=== PATIENT | male | born 1970 | race Caucasian/White ===

== ENCOUNTER 2016-05-22 22:22 | Emergency (ER) | payer OTHER ==
--- NOTE | ~2016-05-22 | CT2 ---
[facility] A Service of [facility] & [facility] RADIOLOGY TEXT RESULTS PATIENT: LAMAR CHACON LOCATION: [facility] : 72 UNIT #: [id number] AGE: [address]: Samira Rodriguez MD SEX: M ORDER DR: [id number] [facility] [address] [place], [place] [address] [id number] MR#: [id number] Acc #: [id number] NAME: LAMAR CHACON : 1970 SEX: M STUDY DATE/TIME: 05/22/2016 23:40 UNIT: [facility] ROOM: STUDY DESCRIPTION: CT Abd and Pelv W Cont Attending Physician: Samira Rodriguez M.D. Ordering Physician: Samira Rodriguez M.D. Primary Care Physician: No Primary Care Physician MEDICAL IMAGING REPORT This report is preliminary unless electronic signature is present EXAM CT abdomen and pelvis, 05/22, at 2343 hours. INDICATIONS Abdominal pain that started about 10 days ago with vomiting and diarrhea. Generalized pain. No trauma. TECHNIQUE Axial images were obtained through the abdomen and pelvis following IV contrast administration. Multiplanar reformats were obtained. This CT exam was performed with one or more of the following radiation dose reduction techniques: automatic exposure control, adjustment of mA and/or kV according to patient size, and iterative reconstruction. COMPARISON No comparison. FINDINGS ABDOMEN: Lung bases are clear. Gallbladder is normal and there is no biliary obstruction. Numerous calcifications are noted in the proximal pancreas compatible with chronic calcific pancreatitis. There is dilatation and beading of the pancreatic duct, also consistent with that diagnosis. The proximal pancreatic duct measures up to 9 mm in diameter. Additionally, there is fairly pronounced fat stranding around the head and uncinate process of the pancreas, which extends around the second portion of the duodenum and out into the right lower quadrant and right pericolic gutter. This may reflect acute pancreatitis with secondary inflammation of the duodenum or could reflect acute duodenitis from peptic ulcer disease. Correlation with laboratory data and physical exam findings recommended. There is a fluid collection along the anterior aspect of the pancreatic head measuring about 2.8 x 1.6 cm. This is presumably a pseudocyst. Attention on followup is recommended. There may be some STS. [facility] A Service of [facility] & [facility] RADIOLOGY TEXT RESULTS PATIENT: LAMAR CHACON LOCATION: [facility] : 72 UNIT #: [id number] AGE: [address]: Samira Rodriguez MD SEX: M ORDER DR: secondary inflammation of the hepatic flexure of the colon as well. The rest of the GI tract is grossly normal. The solid organs are otherwise normal. PELVIS: Urinary bladder is distended, but otherwise normal. The appendix is normal. The remainder of the unopacified GI tract is normal as well. There is a small amount of dependent free fluid in the pelvis. IMPRESSION 1. Patient has chronic calcific pancreatitis. 2. There is fat stranding around the head and uncinate process of the pancreas as well as around the duodenum and extending out into the right pericolic gutter and right lower quadrant. This presumably reflects acute pancreatitis with secondary inflammation of the duodenum and probably the hepatic flexure of the colon as well. Correlation with laboratory data and patient presentation is recommended to exclude a primary duodenitis as a cause for inflammatory change. 3. Fluid collection along the head of the pancreas is likely a small pseudocyst. Attention on followup is recommended. 4. The appendix is normal. 5. Distended, but otherwise normal-appearing, urinary bladder. Dictated by... Rayray Wilder Jr., M.D. THIS IS AN ELECTRONICALLY VERIFIED REPORT Rayray Wilder Jr., M.D. at 05/23/2016 12:39 PM SOLEDAD/jr TD: 05/23/2016 09:24 JOB #: [id number] MEDICAL IMAGING REPORT COPY
[2016-05-22 21:58] LABS: URINE SOURCE CLEAN CATCH
[2016-05-22 22:04] LABS: BASOPHIL# 0.1 X10e3 (0-0.3); BASOPHIL% 0.9 % (0-2.5); EOSINOPHIL# 0.3 X10e3 (0-0.7); EOSINOPHIL% 3.1 % (0.0-7.0); HEMATOCRIT 41.5 % (38.0-50.0); HEMOGLOBIN 14.2 gm/dL (13.0-16.0); LYMPHOCYTE# 1.7 X10e3 (1.0-3.5); LYMPHOCYTE% 20.4 % (17.0-45.0); MEAN CORPUSCULAR HEMOGLOBIN 33.5 PG (28-34); MEAN CORPUSCULAR HGB CONC 34.2 g/dL (30-36); MEAN PLATELET VOLUME 6.5 FL (6.5-11.5); MONOCYTE# 0.6 X10e3 (0-1.0); MONOCYTE% 6.9 % (3.0-12.0); NEUTROPHIL# 5.7 X10e3 (1.5-7.1); NEUTROPHIL% 68.7 % (40-75); PLATELET COUNT 513 X10e3 (140-420); RED BLOOD COUNT 4.23 X10e (3.90-5.60); RED CELL DISTRIBUTION WIDTH 14.7 % (11.0-15.5); WHITE BLOOD COUNT 8.2 X10e3 (4.0-10.5)
[2016-05-22 22:06] LABS: DIFF IND NO; URINE APPEARANCE CLEAR; URINE BILIRUBIN NEG (NEG); URINE BLOOD NEG (NEG); URINE COLOR YELLOW; URINE GLUCOSE NEG (NEG); URINE KETONE NEG (NEG); URINE LEUKOCYTE ESTERASE NEG (NEG); URINE NITRATE NEG (NEG); URINE PROTEIN NEG (NEG); URINE SPECIFIC GRAVITY 1.005 (1.003-1.035); URINE UROBILINOGEN 0.2 MG/DL (NEG)
[2016-05-22 22:10] LABS: CULTURE INDICATED? NO
[2016-05-22 22:18] LABS: AMPHETAMINE NEG (NEG); BARBITURATES NEG (NEG); BENZODIAZEPINES NEG (NEG); COCAINE NEG (NEG); MARIJUANA NEG (NEG); OPIATES NEG (NEG); TRICYCLIC ANTIDEPRESSANTS NEG (NEG); U METHADONE NEG (NEG)
[~2016-05-22 22:22] MED LIST: HYDROCODON-ACE1 EAC5 PO
[2016-05-22 22:41] LABS: ALBUMIN SERUM 3.2 g/dL (3.5-5.0); ALCOHOL BLOOD 60 mg/dL (0); ALKALINE PHOSPHATASE 92 U/L (32-92); ALT (SGPT) 18 U/L (10-40); AMYLASE 219 U/L (0-46); AST (SGOT) 16 U/L (10-42); BILIRUBIN, DIRECT 0.1 mg/dL (0.0-0.2); BILIRUBIN,INDIRECT 0.3 mg/dL (0.0-0.9); BILIRUBIN,TOTAL 0.4 mg/dL (0.2-2.0); CALCIUM SERUM 8.5 mg/dL (8.4-10.2); CARBON DIOXIDE 23 mmol/L (22-31); CHLORIDE 99 mmol/L (100-111); CREATININE SERUM 0.3 mg/dL (0.6-1.4); GLOM FILT RATE Estimated ABOVE60 mL/min (>60); GLUCOSE FASTING 105 mg/dL (70-110); LIPASE 348 U/L (22-51); POTASSIUM 3.4 mmol/L (3.5-5.1); PROTEIN TOTAL SERUM 6.8 g/dL (6.0-8.3); SODIUM 135 mmol/L (135-145)
[2016-05-22 22:42] LABS: BLOOD UREA NITROGEN <5 mg/dL (9-23); BUN/CREATININE RATIO 16.66
== END 2016-05-23 01:26 | disposition left against medical advice (07) ==
LOC: CED 22:22
PROVIDERS: Emergency Medicine
DX: K85.20 Alcohol induced acute pancreatitis without necrosis or infection (principal); K21.9 Gastro-esophageal reflux disease without esophagitis; I10 Essential (primary) hypertension; F17.210 Nicotine dependence, cigarettes, uncomplicated; Z88.5 Allergy status to narcotic agent; Z91.030 Bee allergy status
CPT/HCPCS: 36415; 74177; 80048; 80076; 80307; 81003; 82150; 83690; 85025; 96361; 96374; 96375; 99284; G0480; J2270; J2405; Q9967

== ENCOUNTER 2016-05-25 07:27 | Inpatient (IN) | payer OTHER ==
--- NOTE | ~2016-05-25 | DS ---
Unit #: [id number] #: [id number] Patient: LAMAR CHACON [id number] [address] [place], [place] [address] [id number] I MR#: [id number] NAME: LAMAR CHACON ROOM: 328 Age: 45 Sex: M Admission Date: 05/25/2016 : 1970 Discharge Date: 05/29/2016 Attending Physician: Stefano Ty M.D. DISCHARGE SUMMARY DISCHARGE DIAGNOSES 1. Acute pancreatitis secondary to alcohol. 2. Alcohol abuse. 3. Duodenitis. 4. Dysphagia. HOSPITAL COURSE The patient is a 45-year-old male with a history of alcohol abuse, drinks 6 to 8 beers per day and history of pancreatitis, admitted to the hospital with abdominal pain. The patient was admitted to the med/surg floor. The patient was started on bowel rest and IV fluids and CIWA protocol for alcohol withdrawal. The patient had a CT of the abdomen that showed acute pancreatitis. The patient had a lipase of 405 and amylase of 227 at the time of admission. The patient showed improvement with IV fluids. However, the patient continues to complain of persistent dysphagia. The patient had upper endoscopy by GI, Dr. Dennis and that showed mild esophagitis, hiatal hernia, and significant inflammation in the second and third part of duodenal bulb. The biopsies were taken. Discussed with pathologist, Dr. Schafer and the patient had a benign inflammation in the duodenum and there is no evidence of malignancy. The patient is discharged home on Protonix and pain medication in a stable condition and recommended to follow up with GI in one week and primary care physician in 1 to 2 weeks. DISCHARGE MEDICATIONS The patient is discharged home on Tylenol, Claritin, Protonix 40 mg daily, and [place] for pain medications. DISCHARGE INSTRUCTIONS The patient is recommended to abstain from alcohol and stop his smoking and follow up with the primary care physician. PHYSICAL EXAMINATION GENERAL: The patient is lying on the bed. Alert, awake, oriented, not in acute distress. VITAL SIGNS: Temperature 98.3, pulse 92, respirations 18, blood pressure 134/95. LUNGS: Clear to auscultation bilaterally. No rhonchi. No wheezing. HEART: Regular rate and rhythm. ABDOMEN: Soft. Positive bowel sounds. Complains of tenderness at the site of the right lower quadrant where the biopsy was taken. Extremities: No cyanosis. No edema. NEUROLOGIC: Alert, awake, oriented. No gross focal motor deficits. Unit #: [id number] #: [id number] Patient: LAMAR CHACON DIAGNOSTIC STUDIES LABORATORY RESULTS: Glucose 109, BUN less than 5, creatinine 0.5. Sodium 139, potassium 3.9, chloride 100, bicarb 30, calcium 8.9, albumin 2.5, AST 31, ALT 59, alkaline phosphatase 68, amylase 49, lipase 66. WBC 6.1, hemoglobin 12.1, hematocrit 36.4, platelets 554. The patient is discharged in a stable condition and recommended to follow up with GI and PCP in 1 to 2 weeks. Dictated by... Celestino Weaver TD: 05/30/2016 07:50 JOB #: [id number] DISCHARGE SUMMARY X X DISCHARGE SUMMARY
--- NOTE | ~2016-05-25 | OR ---
Unit #: [id number] #: [id number] Patient: LAMAR CHACON [id number] [address] [place], [place] [address] [id number] Rolando MR#: [id number] NAME: LAMAR CHACON ROOM: 328 Date of Procedure: 05/28/2016 Admission Date: 05/25/2016 Surgeon: eKi Dennis M.D. : 1970 Attending Physician: Stefano Ty M.D. Primary Care Physician: Primary Care Physician No OPERATIVE REPORT JOB NOTE: CC: PRIMARY CARE PHYSICIAN PROCEDURE PERFORMED Esophagogastroduodenoscopy with biopsies with regular as well as side-viewing endoscopic retrograde cholangiopancreatography scope. INDICATIONS FOR PROCEDURE The patient presented with an acute pancreatitis, also with dysphagia. CT scan shows thickening of the duodenal wall, undergoing evaluation with upper endoscopy. MEDICATIONS Monitored anesthesia. POSTOPERATIVE FINDINGS 1. Mild esophagitis diffusely for possible Zoë, biopsies taken. 2. Hiatal hernia, nonobstructing esophageal ring. 3. Normal stomach. 4. Significant inflammation in the second and third part of the duodenal bulb. There was a swelling around the ampulla, which could be possibly adenomatous versus inflammatory, biopsies taken carefully away from the opening with an ERCP scope. PLAN Follow up on the pathology report. If the biopsies are negative, repeat EGD with side-viewing scope to look at this area after 6 to 8 weeks. DESCRIPTION OF PROCEDURE The patient was explained of the procedure, risks, and benefits along with risks and benefits of anesthesia. He was brought to the endoscopy room. Propofol anesthesia was given. Bite block was placed. The scope was passed down the mouth into the esophagus, stomach, duodenum, and distal duodenum. Findings as described. I repeated the scope with a side-viewing scope to look at the ampullary and periampullary area, which was biopsied with a side-viewing ERCP scope. Scope was gently pulled out. He tolerated it well. No major complications were seen. Dictated by... Celestino Mendes/bingl Unit #: [id number] #: [id number] Patient: LAMAR CHACON TD: 05/28/2016 23:39 JOB #: [id number] OPERATIVE REPORT X Kei Dennis MD PROCEDURE OPERATIVE NOTE
--- NOTE | ~2016-05-25 | CT5 ---
[facility] A Service of [facility] & [facility] RADIOLOGY TEXT RESULTS PATIENT: LAMAR CHACON LOCATION: C3A 328-01 : [birth year] UNIT #: [id number] AGE: [address]: LEXI TY MD SEX: M ORDER DR: [id number] [place] [address] [facility]. [place], [place] [address] [id number] MR#: [id number] Acc #: [id number] NAME: LAMAR CHACON : 1970 SEX: M STUDY DATE/TIME: 05/25/2016 8:20 UNIT: [facility] ROOM: 88415 STUDY DESCRIPTION: CT Abdomen W Cont Attending Physician: Lexi Ty M.D. Ordering Physician: Skip Daley M.D. Primary Care Physician: Primary Care Physician No MEDICAL IMAGING REPORT This report is preliminary unless electronic signature is present EXAM CT of the abdomen and pelvis with contrast INDICATIONS 45-year-old male with history of abdominal pain for 12 days and pancreatitis. TECHNIQUE CT of the abdomen and pelvis was performed following the administration of IV contrast. Coronal and sagittal reformatted images obtained. This CT exam was performed with one or more of the following radiation dose reduction techniques: Automatic exposure control, adjustment of mA and/or kV according to patient size, and iterative reconstruction. Compared with CT of the abdomen and pelvis from 05/22/2016. FINDINGS The lung bases are clear. Stable fatty infiltration of the liver. Gallbladder unremarkable. Spleen unremarkable. Kidneys unremarkable. Adrenal glands unremarkable. Stable abnormal appearance of the pancreas. Stable large calcifications and edema within the head and uncinate process of the pancreas. Stable fluid collection in the head of the pancreas likely a pseudocyst. Stable dilated pancreatic duct. Stable adjacent thickening of the duodenum. Stable stranding about the pancreas. Stable fluid and thickening in the fascial planes extending inferiorly and also in the right paracolic gutter. The bone windows are unremarkable. IMPRESSION No significant change in the appearance of the pancreas, with findings consistent with the patient's history of acute pancreatitis. Stable stranding about the pancreas and edema involving the pancreatic head and uncinate process, with associated calcifications and small fluid STS. [facility] A Service of [facility] & [facility] RADIOLOGY TEXT RESULTS PATIENT: LAMAR CHACON LOCATION: A 328-01 : [birth year] UNIT #: [id number] AGE: [address]: LEXI TY MD SEX: M ORDER DR: collection likely a pseudocyst. Dictated by... Abraham Maier M.D. THIS IS AN ELECTRONICALLY VERIFIED REPORT Abraham Maier M.D. at 05/26/2016 7:41 AM KARTHIK/leanne TD: 05/25/2016 16:00 JOB #: [id number] MEDICAL IMAGING REPORT COPY
--- NOTE | ~2016-05-25 | EKG ---
PATIENT: LAMAR CHACON UNIT #: [id number] Ventricular Rate: 122 BPM Atrial Rate: 122 BPM P-R Interval: 118 ms QRS Duration: 84 ms Q-T Interval: 326 ms QTC Calculation(Bezet): 464 ms P [place]: 65 degrees Calculated R [place]: 78 degrees Calculated T [place]: 80 degrees Diagnosis Line: Sinus tachycardia Diagnosis Line: Low voltage QRS Diagnosis Line: Borderline ECG Diagnosis Line: No previous ECGs available Diagnosis Line: Confirmed by MARINA BLANCAS MD ([id number]) on Diagnosis Line: 05/26/2016 12:05:46 AM INTERPRETING MD: MAGALIS CARTER
--- NOTE | ~2016-05-25 | HP ---
Unit #: [id number] #: [id number] Patient: LAMAR CHACON [id number] [address] [place], [place] [address] [id number] I MR#: [id number] NAME: LAMAR CHACON ROOM: 328 Age: 45 Sex: M Admission Date: 05/25/2016 : 1970 Attending Physician: Stefano Ty M.D. Primary Care Physician: No Primary Care Physician HISTORY AND PHYSICAL CHIEF COMPLAINT Abdominal pain. HISTORY OF PRESENT ILLNESS The patient is a 45-year-old male with a history of alcohol abuse, drinks six to eight beers per day, and history of a pancreatitis, presented to the emergency room with an abdominal pain. It started yesterday at around 8:00 p.m. The patient stated the pain has been constant, is sharp and radiating to the back. The patient denies any nausea or vomiting. The patient also complains of the difficulty with the swallowing with history of acid reflux. The patient had a CT of the abdomen and pelvis that showed findings consistent with an acute pancreatitis. The patient had the labs done that showed a lipase of 405 and amylase of 227. The patient also complains of the subjective fevers and the fine tremors at the rest. The patient denies any nausea or vomiting or any trauma. PAST MEDICAL HISTORY History of a hypertension, acid reflux. PAST SURGICAL HISTORY History of exploratory laparotomy. HOME MEDICATIONS He takes Flexeril. ALLERGIES Tramadol and the bee pollen. SOCIAL HISTORY Smokes six to eight cigars per day and drinks six to eight beers per day pending on the day and denies any illicit drug abuse. FAMILY HISTORY Reviewed and none. REVIEW OF SYMPTOMS Fourteen-point review of symptoms performed and only pertinent positive findings as described above, remaining are negative. PHYSICAL EXAMINATION GENERAL APPEARANCE: On examination the patient was lying on a bed not in acute distress. VITAL SIGNS: Temperature 97.8, pulse 120, respiratory rate 20, blood pressure 142/97, sating 98% at room air. Unit #: [id number] #: [id number] Patient: LAMAR CHACON HEENT: Head atraumatic, normocephalic. Pupils equal, round and reacting to light and accommodation. Extraocular movements are intact. Dry mucous membranes. NECK: Supple. No JVD. LUNGS: Clear to auscultation bilaterally. No rhonchi. No wheezing. HEART: Regular rate and rhythm. ABDOMEN: Soft, positive bowel sounds and epigastric tenderness. EXTREMITIES: No cyanosis. No clubbing. NEUROLOGIC: Alert, awake, oriented. Positive for the resting tremors. DIAGNOSTIC STUDIES LABORATORY DATA: Glucose 165, BUN 7, creatinine 0.6, sodium 134, potassium 4.0, chloride 99, bicarb 23, calcium 8.6, magnesium 1.7, total protein 6.7, albumin 3, total bilirubin 1.2, AST 90, ALT 58, alkaline phosphatase 83, amylase 227, lipase 405, TSH 3.09, alcohol less than 5, troponin less than 0.05, WBC 13.3, hemoglobin 13.8, hematocrit 41.6, platelets 478, neutrophils 83.2. Urine tox is positive for TCA and UA is negative. IMAGING: The CT of the abdomen and pelvis shows no significant change in the appearance of the pancreas, with finding consistent with the patient's history of acute pancreatitis. There is stable stranding about the pancreas and edema involving the pancreatic head and uncinate process, with associated calcification and small fluid collection, likely a pseudocyst. ASSESSMENT 1. Acute pancreatitis. 2. Alcohol abuse. PLAN 1. Plan to admit the patient to inpatient with the telemetry. 2. Continue with the pain control with the morphine. 3. IV fluids D5 half NS at 125 mL per hour. 4. CIWA protocol. 5. Replace the electrolytes, magnesium per protocol. 6. Protonix 40 mg IV daily. 7. Further recommendations will follow as more lab results are available. Dictated by Celestino Weaver TD: 05/25/2016 21:22 JOB #: [id number] Unit #: [id number] #: [id number] Patient: LAMAR CHACON HISTORY AND PHYSICAL X X HISTORY AND PHYSICAL
[2016-05-25 08:18] LABS: BASOPHIL# 0.1 X10e3 (0-0.3); BASOPHIL% 0.6 % (0-2.5); EOSINOPHIL% 0.3 % (0.0-7.0); HEMATOCRIT 41.6 % (38.0-50.0); HEMOGLOBIN 13.8 gm/dL (13.0-16.0); LYMPHOCYTE% 7.4 % (17.0-45.0); MEAN CELL VOLUME 97.3 FL (83-96); MEAN CORPUSCULAR HEMOGLOBIN 32.2 PG (28-34); MEAN CORPUSCULAR HGB CONC 33.1 g/dL (30-36); MONOCYTE# 1.1 X10e3 (0-1.0); MONOCYTE% 8.5 % (3.0-12.0); NEUTROPHIL% 83.2 % (40-75); PLATELET COUNT 478 X10e3 (140-420); RED BLOOD COUNT 4.28 X10e (3.90-5.60); RED CELL DISTRIBUTION WIDTH 14.9 % (11.0-15.5); WHITE BLOOD COUNT 13.3 X10e3 (4.0-10.5)
[2016-05-25 08:19] LABS: DIFF IND NO
[2016-05-25 08:25] LABS: POC - CKMB <1.0 ng/mL (0.0-7.9); POC - TROPONIN <0.05 ng/mL (<=0.05)
[2016-05-25] MEDS ORDERED: ACETAMINOPHEN PO (08:50)
[2016-05-25] MEDS ORDERED: FLEXERIL10 MG PO (08:50)
[2016-05-25] MEDS ORDERED: CLARITIN10 M3 PO (08:51)
[2016-05-25 08:58] LABS: URINE SOURCE CLEAN CATCH
[2016-05-25 09:00] LABS: ALCOHOL BLOOD <5 mg/dL (0); ALKALINE PHOSPHATASE 83 U/L (32-92); ALT (SGPT) 58 U/L (10-40); AMYLASE 227 U/L (0-46); AST (SGOT) 90 U/L (10-42); BILIRUBIN, DIRECT 0.3 mg/dL (0.0-0.2); BILIRUBIN,INDIRECT 0.9 mg/dL (0.0-0.9); BILIRUBIN,TOTAL 1.2 mg/dL (0.2-2.0); BLOOD UREA NITROGEN 7 mg/dL (9-23); BUN/CREATININE RATIO 11.66; CALCIUM SERUM 8.6 mg/dL (8.4-10.2); CARBON DIOXIDE 23 mmol/L (22-31); CHLORIDE 99 mmol/L (100-111); CREATININE SERUM 0.6 mg/dL (0.6-1.4); GLOM FILT RATE Estimated ABOVE60 mL/min (>60); GLUCOSE FASTING 165 mg/dL (70-110); LIPASE 405 U/L (22-51); MAGNESIUM 1.7 mg/dL (1.6-3.0); PROTEIN TOTAL SERUM 6.7 g/dL (6.0-8.3); SODIUM 134 mmol/L (135-145)
[2016-05-25 09:05] LABS: URINE APPEARANCE CLEAR; URINE BILIRUBIN NEG (NEG); URINE BLOOD NEG (NEG); URINE COLOR YELLOW; URINE GLUCOSE NEG (NEG); URINE KETONE TRACE (NEG); URINE LEUKOCYTE ESTERASE NEG (NEG); URINE NITRATE NEG (NEG); URINE PROTEIN NEG (NEG); URINE SPECIFIC GRAVITY 1.005 (1.003-1.035); URINE UROBILINOGEN 0.2 MG/DL (NEG)
[2016-05-25 09:11] LABS: CULTURE INDICATED? NO
[2016-05-25 15:14] LABS: AMPHETAMINE NEG (NEG); BARBITURATES NEG (NEG); BENZODIAZEPINES NEG (NEG); COCAINE NEG (NEG); MARIJUANA NEG (NEG); OPIATES NEG (NEG); TRICYCLIC ANTIDEPRESSANTS POS (NEG); U METHADONE NEG (NEG)
[2016-05-25 15:14] LABS: THYROID STIMULATING HORMONE 3.09 uIU/ml (0.34-5.60)
[2016-05-25 15:21] LABS: FREE THYROXIN (T4) 0.88 ng/dL (0.58-1.64)
[2016-05-26 08:40] LABS: BASOPHIL# 0.1 X10e3 (0-0.3); BASOPHIL% 0.6 % (0-2.5); EOSINOPHIL# 0.2 X10e3 (0-0.7); EOSINOPHIL% 1.4 % (0.0-7.0); HEMATOCRIT 35.8 % (38.0-50.0); LYMPHOCYTE# 1.6 X10e3 (1.0-3.5); LYMPHOCYTE% 13.8 % (17.0-45.0); MEAN CELL VOLUME 98.4 FL (83-96); MEAN CORPUSCULAR HEMOGLOBIN 32.3 PG (28-34); MEAN CORPUSCULAR HGB CONC 32.8 g/dL (30-36); MEAN PLATELET VOLUME 6.6 FL (6.5-11.5); MONOCYTE# 0.8 X10e3 (0-1.0); MONOCYTE% 7.3 % (3.0-12.0); NEUTROPHIL# 8.9 X10e3 (1.5-7.1); NEUTROPHIL% 76.9 % (40-75); PLATELET COUNT 400 X10e3 (140-420); RED BLOOD COUNT 3.64 X10e (3.90-5.60); RED CELL DISTRIBUTION WIDTH 15.1 % (11.0-15.5); WHITE BLOOD COUNT 11.6 X10e3 (4.0-10.5)
[2016-05-26 08:42] LABS: DIFF IND NO; HEMOGLOBIN 11.8 gm/dL (13.0-16.0)
[2016-05-26 09:19] LABS: AMYLASE 133 U/L (0-46); BLOOD UREA NITROGEN <5 mg/dL (9-23); BUN/CREATININE RATIO 8.33; CARBON DIOXIDE 26 mmol/L (22-31); CHLORIDE 103 mmol/L (100-111); CREATININE SERUM 0.6 mg/dL (0.6-1.4); GLOM FILT RATE Estimated ABOVE60 mL/min (>60); GLUCOSE FASTING 136 mg/dL (70-110); LIPASE 152 U/L (22-51); POTASSIUM 3.8 mmol/L (3.5-5.1); SODIUM 134 mmol/L (135-145)
[2016-05-27 07:25] LABS: HEMATOCRIT 35.6 % (38.0-50.0); HEMOGLOBIN 11.7 gm/dL (13.0-16.0); MEAN CELL VOLUME 99.5 FL (83-96); MEAN CORPUSCULAR HEMOGLOBIN 32.7 PG (28-34); MEAN CORPUSCULAR HGB CONC 32.8 g/dL (30-36); MEAN PLATELET VOLUME 7.4 FL (6.5-11.5); RED BLOOD COUNT 3.58 X10e (3.90-5.60); RED CELL DISTRIBUTION WIDTH 14.8 % (11.0-15.5); WHITE BLOOD COUNT 8.8 X10e3 (4.0-10.5)
[2016-05-27 08:30] LABS: ALBUMIN SERUM 2.2 g/dL (3.5-5.0); ALKALINE PHOSPHATASE 65 U/L (32-92); ALT (SGPT) 92 U/L (10-40); AMYLASE 65 U/L (0-46); AST (SGOT) 77 U/L (10-42); BILIRUBIN,TOTAL 0.7 mg/dL (0.2-2.0); CALCIUM SERUM 7.7 mg/dL (8.4-10.2); CARBON DIOXIDE 27 mmol/L (22-31); CHLORIDE 101 mmol/L (100-111); CREATININE SERUM 0.5 mg/dL (0.6-1.4); GLOM FILT RATE Estimated ABOVE60 mL/min (>60); GLUCOSE FASTING 133 mg/dL (70-110); LIPASE 50 U/L (22-51); POTASSIUM 3.6 mmol/L (3.5-5.1); PROTEIN TOTAL SERUM 5.1 g/dL (6.0-8.3); SODIUM 131 mmol/L (135-145)
[2016-05-27 08:38] LABS: BLOOD UREA NITROGEN <5 mg/dL (9-23)
[2016-05-28 08:56] LABS: AMYLASE 32 U/L (0-46); CALCIUM SERUM 8.3 mg/dL (8.4-10.2); CARBON DIOXIDE 29 mmol/L (22-31); CHLORIDE 101 mmol/L (100-111); CREATININE SERUM 0.5 mg/dL (0.6-1.4); GLOM FILT RATE Estimated ABOVE60 mL/min (>60); GLUCOSE FASTING 141 mg/dL (70-110); POTASSIUM 3.6 mmol/L (3.5-5.1); SODIUM 136 mmol/L (135-145)
[2016-05-28 08:57] LABS: BLOOD UREA NITROGEN <5 mg/dL (9-23)
[2016-05-29 06:08] LABS: HEMATOCRIT 36.4 % (38.0-50.0); HEMOGLOBIN 12.1 gm/dL (13.0-16.0); MEAN CELL VOLUME 99.4 FL (83-96); MEAN CORPUSCULAR HEMOGLOBIN 32.9 PG (28-34); MEAN CORPUSCULAR HGB CONC 33.2 g/dL (30-36); MEAN PLATELET VOLUME 7.1 FL (6.5-11.5); RED BLOOD COUNT 3.66 X10e (3.90-5.60); RED CELL DISTRIBUTION WIDTH 14.9 % (11.0-15.5); WHITE BLOOD COUNT 6.1 X10e3 (4.0-10.5)
[2016-05-29 06:50] LABS: ALBUMIN SERUM 2.5 g/dL (3.5-5.0); ALKALINE PHOSPHATASE 68 U/L (32-92); ALT (SGPT) 59 U/L (10-40); AMYLASE 49 U/L (0-46); AST (SGOT) 31 U/L (10-42); BILIRUBIN,TOTAL 0.5 mg/dL (0.2-2.0); CALCIUM SERUM 8.9 mg/dL (8.4-10.2); CARBON DIOXIDE 30 mmol/L (22-31); CHLORIDE 100 mmol/L (100-111); CREATININE SERUM 0.5 mg/dL (0.6-1.4); GLOM FILT RATE Estimated ABOVE60 mL/min (>60); GLUCOSE FASTING 109 mg/dL (70-110); LIPASE 66 U/L (22-51); POTASSIUM 3.9 mmol/L (3.5-5.1); PROTEIN TOTAL SERUM 6.6 g/dL (6.0-8.3); SODIUM 139 mmol/L (135-145)
[2016-05-29 06:52] LABS: BLOOD UREA NITROGEN <5 mg/dL (9-23)
[2016-05-29] MEDS ORDERED: HYDROCODON-ACE1 EAC7 PO (13:13)
[2016-05-29] MEDS ORDERED: PROTONIX PO (13:14)
== END 2016-05-29 14:05 | disposition home or self-care (01) | DRG 440 ==
LOC: CED 07:27 → CEDOF 10:40 → C3A PCU 18:21
PROVIDERS: Emergency Medicine; Internal Medicine
PROC: 0DB98ZX Excision of Duodenum, Via Natural or Artificial Opening Endoscopic, Diagnostic (ICD-10-PCS; principal; 2016-05-28 09:26)
PROC: 0DB58ZX Excision of Esophagus, Via Natural or Artificial Opening Endoscopic, Diagnostic (ICD-10-PCS; 2016-05-28 09:26)
DX: K85.20 Alcohol induced acute pancreatitis without necrosis or infection (principal); R13.10 Dysphagia, unspecified; I10 Essential (primary) hypertension; K21.9 Gastro-esophageal reflux disease without esophagitis; F10.10 Alcohol abuse, uncomplicated; K44.9 Diaphragmatic hernia without obstruction or gangrene; K22.9 Disease of esophagus, unspecified; K20.9 Esophagitis, unspecified; K29.80 Duodenitis without bleeding
CPT/HCPCS: 74160; 80048; 80053; 80076; 80307; 81003; 82150; 82553; 83690; 83735; 84439; 84443; 84484; 85025; 85027; 88305; 93005; 96361; 96374; 96375; 96376; 99291; C9113; G0480; J1170; J2060; J2270; J2405; J2550; J3411; J3475; J7042; Q9967